=== PATIENT | female | born 1990 | race Two or more races ===

== ENCOUNTER 2023-01-27 21:54 | Emergency (ER) | payer MEDICAID, OTHER ==
[~2023-01-27] VITALS: Ht 162.6 cm; Wt 72.3 kg
[2023-01-27] MEDS ORDERED: ALPRAZolam 0.5 MG TAB PO ONE (23:30)
[2023-01-28] VITALS: PULSE 70; RESP 18; TEMP 98.6; O2SAT 100
[2023-01-28] MEDS ORDERED: ALPR0.5T PO (01:32)
[2023-01-28 02:29] VITALS: BP 113/50; PULSE 58; RESP 18; O2SAT 100
== END 2023-01-28 02:30 | disposition home or self-care (01) ==
LOC: ER 21:54
DX: F41.9 Anxiety disorder, unspecified (principal); F32.9 Major depressive disorder, single episode, unspecified